=== PATIENT | male | born 1950 | race Caucasian/White ===

== ENCOUNTER 2024-07-06 06:12 | Outpatient (REF) | payer MEDICARE, BC, SELFPAY ==
--- OUTSIDE RECORDS SUMMARY | 2024-07-06 06:20 | XMS_ITS | Encounter Summary ---
Author Organization [facility] Address [address] [place] [address] Care Team Providers Care Aluminum Polisher Name Role Phone Herminia Velásquez MD Primary Care Provider [phone] Reason for Visit * Reason Onset Date Comments Med Refill 06/13/2024 Encounter Details Date Type Department Care Team (Late st Contact Info) Description 06/13/2024 Telephone [facility] [address] [place] [address] [place] [phone] Young Dash MD [address] [place] [address] [address] [place] [address] Med Refill Social History Tobacco Use Types Packs/Day Years Used Date Smoking Tobacco: Former Smokeless Tobacco: Former Alcohol Use Standard Drinks/Week Comments Yes 4 (1 standard drink = 0.6 oz pur e alcohol) Sex and Gender Information Value Date Recorded Sex Assigned at Not on file Legal Sex Male 11:57 AM EST Gender Identity Not on file Sexual Orientation Not on file documented as of this encounter Ordered Prescriptions Prescription Sig Dispense Quantity Refills Last Filled Start Date End Date Xarelto 20 mg tablet Take 1 tablet (20 mg total) by mouth 1 (one) time each day. 90 tablet 1 06/13/2024 documented in this encounter Progress Notes * Hyacinth Medina MA - 06/13/2024 10:40 AM EST Puneet 12/30/23--chem labs done 09/16/23--efaxeda refill for xarelto 20mg * Kassidy Mcgee 06/13/2024 10:34 AM EST The patient called requesting a refill for Xarelto 20 mg, 1 tablet daily, 90 day supply, pharmacy confirmed. documented in this encounter Plan of Treatment Upcoming Encounters Date Type Department Care Team (Late st Contact Info) Description 08/09/2024 7:30 AM EDT Appointment [facility] Endoscopy [address] [place] [phone] Julio Abdullahi MD [address] [address] documented as of this encounter Visit Diagnoses Not on filedocumented in this encounter Discontinued Medications Medication Sig Discontinue Reason Start Date End Da te Xarelto 20 mg tablet Take 1 tablet (20 mg total) by mouth 1 (one) time each day. Reorder 02/11/2024 06/13/2024 documented as of this encounter Care Teams Aluminum Polisher Relationship Specialty Start Date End Date Herminia Velásquez MD [address] [place] [id number] PCP - General Internal Medicine 06/13/24 documented as of this encounter
--- OUTSIDE RECORDS SUMMARY | 2024-07-06 06:20 | XMS_ITS ---
Author Organization [facility] Address [address] [place] [address] Care Team Providers Care Double Backer Name Role Phone TENZIN MEDINA Primary Care Provider REASON FOR REFERRAL Reason Colonoscopy screenin g with [facility] Diagnosis 1 Colon cancer screeni ng (Z12.11) Referral Organization [facility] Referring Provider First Name TENZIN Referring Provider Last Name ADAM Referring Provider Speciality Internal M edicine Referred Provider Specialty Gastroentero logy General Notes [facility], [address] [place] [id number], P [phone], F [phone] Clinical Notes Jojo Eric 2024 10:16:14 AM >Referral with note and labs sent to [facility]. Paper copy mailed to pt home for record. TYJeaneth Singer Kammy 06/14/2024 08:23:55 AM >Scheduled with Dr. Abdullahi 08/09/24 730AM. TY. Referral Priority Routine REASON FOR VISIT CCM - colo and dexa Encounters Encounter Location Date Provider Diagnosis [facility] [address] [place] [address] 06/07/2024 TENZIN MEDINA Screening for osteoporosis Z13.820 ASSESSMENTS Encounter Date Diagnosis Assessment Notes Treatment Notes Treatment Clinical Notes Section Notes 06/07/2024 Screening for osteoporosis (ICD-10 - Z13.820) PLAN OF TREATMENT Pending Test Test Name Order Date DEXA 06/07/2024 Referrals Referral Date Details Colonoscopy screenin g with [facility] Next Appt Details Provider Name:DWAYNE RUVALCABA, 01/03/2025 10:00:00 AM, [address] [place] [address], [phone], Progress Notes * Rubin VILLANUEVADOB:[birth year] (73 yo M)Acc No.[id number]:06/07/2024 Patient:??Rubin VILLANUEVA :1950?Age:73 Y?Sex:Neeru fuller Address:[address] [place] [address] [place] [address] Subjective: * Chief Complaints: * ?CCM - colo and dexa * Medical History:?? * Surgical History:?? * Hospitalization/Major Diagno stic Procedure:?? * Medications:?? Objective: Assessment: * Assessment: 1.??Screening for osteoporos is - Z13.820?? Plan: * Treatment: 2.??Others? Referral To:Gastroenterology ?Reason:Colonoscopy screening with [facility] * Procedure Codes:?? * true * Date:?? Consultation Request Notes Referral Date Referring Provider Referred Provider Not jamal 06/09/2024 TENZIN MEDINA , Colonoscopy scr eening with [facility]
--- OUTSIDE RECORDS SUMMARY | 2024-07-06 06:20 | XMS_ITS | Clinical Summary ---
Author Organization [facility] [address] [facility] Address [address] [place] [address] Phone Care Team Providers Care Litigation Coordinator Name Role Phone Herminia Velásquez MD Primary Care Provider [phone] Allergies No known active allergies Medications metoprolol succinate (TOPROL-XL) 50 mg 24 hr tablet TAKE 1 TABLET BY MOUTH EVERY DAY 90 tablet 2 4 Active calcium carbonate 1,500 mg (600 mg elemental calcium) tablet Take 1 tablet (1,500 mg total) by mouth 1 (one) time each day. Active Vitamin-B complex split tablet Take by mouth 1 (one) time each day. Active chlorthalidone (HYGROTON) 25 mg tablet Take 1 tablet (25 mg total) by mouth 1 (one) time each day. 4 Active amLODIPine-joy zepril (LOTREL) 10-40 mg per capsule Take 1 capsule by mouth 1 (one) time each day. Active cyanocobalamin (VITAMIN B-12) 1,000 mcg tablet Take 1 tablet (1,000 mcg total) by mouth. Active metoprolol succinate (TOPROL-XL) 50 mg 24 hr tablet Take 1 tablet (50 mg total) by mouth 1 (one) time each day. 4 Active Xarelto 20 mg tablet Take 1 tablet (20 mg total) by mouth 1 (one) time each day. 90 tablet 1 5 Active Xarelto 20 mg tablet Take 1 tablet (20 mg total) by mouth 1 (one) time each day. 4 06/13/19 25 Discontinue d(Reorder) polyethylene glycol (COLYTE) 240-22.72-6.72 -5.84 gram solutionIndicat ions:Personal history of other colon polyps Take 4,000 mL by mouth 1 (one) time for 1 dose. Drink 8 oz every 10-15 minutes until solution is gone 4000 mL 06/13/19 25 Encounters Date Type Department Care Team Description 06/13/2024 Telephone [facility] Cardiology [facility] [address] [place] [address] GeorgianaYoung Good MD Med Refill from Last 3 Months Social History Tobacco Use Types Packs/Day Years Used Date Smoking Tobacco: Former Smokeless Tobacco: Former Alcohol Use Standard Drinks/Week Comments Yes 4 (1 standard drink = 0.6 oz pur e alcohol) Sex and Gender Information Value Date Recorded Sex Assigned at Not on file Legal Sex Male 11:57 AM EST Gender Identity Not on file Sexual Orientation Not on file Obstetrics History Last Filed Vital Signs Vital Sign Reading Time Taken Comments Blood Pressure 120/64 12/30/2023 8:36 AM EDT Sit ting L Arm Pulse 57 12/30/2023 8:36 AM EDT Temperature - - Respiratory Rate - - Oxygen Saturation - - Inhaled Oxygen Concentration - - Weight 100 kg (221 lb) 12/30/2023 8:36 AM EDT Height 180.3 cm (5' 11 ) 12/30/2023 8:36 AM EDT Body Mass Index 30.82 12/30/2023 8:36 AM EDT Plan of Treatment Upcoming Encounters Date Type Department Care Team (Late st Contact Info) Description 08/09/2024 7:30 AM EDT Appointment [facility] Endoscopy [address] [place] [address] Julio Abdullahi MD [address] [address] Health Maintenance Due Date Last Done Comments DTaP,Tdap,and Td Vaccines (1 - Tdap) 09/09/1970 Pneumococcal Vaccine: 50+ Ye ars (1 of 1 - PCV) 09/09/2001 Zoster Vaccines (1 of 2) 09/09/2001 RSV Immunization Patients 60 + Years Old (1 - Risk 60-74 years 1-dose series) 2011 Abdominal Aortic Aneurysm (A AA) Screen 03/31/2022 Cholesterol Screening (Lipid Panel) 03/31/2022 Colorectal Cancer Screening: Colonoscopy 03/31/2022 Depression Screening 03/31/2022 Falls Risk Assessment 03/31/2022 Hepatitis C Screening 03/31/2022 Social Influencers of Health Screening 03/31/2022 Medicare Annual Wellness Visit 10/28/2022 10/28/2021 COVID-19 Vaccine (1 - 2023-2 5 season) 2024 Influenza Vaccine (#1) 2024 Hypertension/CHF/CAD Annual BMP Blood Test 09/15/2024 09/16/2023 HIB Vaccines Aged Out No longer eligi ble based on patient's age to complete this topic HPV Vaccines Aged Out No longer eligi ble based on patient's age to complete this topic Hepatitis A Vaccines Aged Out No long er eligible based on patient's age to complete this topic Hepatitis B Vaccines Aged Out No long er eligible based on patient's age to complete this topic IPV Vaccines Aged Out No longer eligi ble based on patient's age to complete this topic MMR Vaccines Aged Out No longer eligi ble based on patient's age to complete this topic Meningococcal ACWY Vaccine Aged Out N o longer eligible based on patient's age to complete this topic Meningococcal B Vacine Aged Out No lo nger eligible based on patient's age to complete this topic RSV Immunization Patients Un abe 20 months Aged Out No longer eligible b ased on patient's age to complete this topic Varicella Vaccines Aged Out No longer eligible based on patient's age to complete this topic Insurance MEDICARE [facility] Care Teams Litigation Coordinator Relationship Specialty Start Date End Date Herminia Velásquez MD [address] [place] [id number] PCP - General Internal Medicine 06/13/24
--- OUTSIDE RECORDS SUMMARY | 2024-07-06 06:21 | XMS_ITS ---
Author Organization [facility] Address [address] [place] [address] Care Team Providers Care Career Development Specialist Name Role Phone TENZIN MEDINA Primary Care Provider DWAYNE RUVALCABA Unavailable [phone] ALLERGIES No Known Allergies REASON FOR VISIT Pt here for MWV, pt has no concerns. MEDICATIONS Medication SIG (Take, Route, Frequency, Duration) Notes Start Date End Date Status Chlorthalidone 25 MG 1 tablet in the mor kati with food Orally Once a day for 30 day(s) 03/13/2020 Active Viagra 100 MG 1 tablet as needed Orally Once a day for 30 day(s) 12/20/2018 Active Toprol XL 50 MG 1 tablet Orally Once a day for 90 days Active amLODIPine Besy-Benazepril HCl 10-40 MG TAKE 1 CAPSULE BY MOUTH EVERY DAY for 90 Active Xarelto Active Vitamin B12 100 MCG as directed Orally Active Calcium 500 MG 1 tablet with meals Orally Twice a day for 30 day(s) Active Complex B-100 - as directed Orally Active SOCIAL HISTORY Tobacco Use: Social History Observation Description Date Details (start date - stop date) Former Smoker NA - NA Sex Assigned At : Social History Observation Description Sex Assigned At Unknown Tobacco Use/Smoking Question Answer Notes Are you a former smoker VITAL SIGNS Blood pressure systolic 142 mm Hg 07/04/19 25 Blood pressure diastolic 68 mm Hg 025 Heart Rate 82 /min 07/03/2024 Height 70 in 07/03/2024 Weight 228 lbs 07/03/2024 BMI 32.71 kg/m2 07/03/2024 Oximetry 99 % 07/03/2024 Encounters Encounter Location Date Provider Diagnosis [facility] [address] [facility] [address] [place] [address] 07/03/2024 DWAYNE RUVALCABA Annual physical exam Z00.00 ; Encounter for screening for depression Z13.31 ; Encounter for screening for other disorder Z13.89 ; Advanced directives, counseling/discussion Z71.89 ; Essential (primary) hypertension I10 ; Other obesity due to excess calories E66.09 ; PAF (paroxysmal atrial fibrillation) I48.0 ; Body mass index [BMI] 32.0-32.9, adult Z68.32 ; Hyperlipidemia, unspecified E78.5 and Chronic anticoagulation Z79.01 ASSESSMENTS Encounter Date Diagnosis Assessment Notes Treatment Notes Treatment Clinical Notes Section Notes 07/03/2024 Annual physical exam (ICD-10 - Z00.00) Patient is here today for MAWV Acute Concerns/Problem List: 07/03/2024 _update labs please Rate controlled, no A. Fib today, , On chronic anticoagulation BP is stable, other chronic conditions stable. HCP and MOLST on file. Of note, some information is being carried forward from prior records for informational purposes only and is being cited so that efficiency, safety and quality of the patient's care is not compromised This note was prepared using voice recognition software and direct typing Please excuse inadvertent swatch paster or typing errors, or uncorrected word substitutions Although every attempt has been made by the provider to proofread this document, occasional misspellings and typographical errors may still be present Due to the previous pandemic, and the use of personal protective equipment (PPE) This may decrease voice recognition accuracy Inadvertent swatch paster errors may occur 07/03/2024 Encounter for screening for depression (ICD-10 - Z13.31) Patient is here today for MAWV Acute Concerns/Problem List: 07/03/2024 _update labs please Rate controlled, no A. Fib today, , On chronic anticoagulation BP is stable, other chronic conditions stable. HCP and MOLST on file. Of note, some information is being carried forward from prior records for informational purposes only and is being cited so that efficiency, safety and quality of the patient's care is not compromised This note was prepared using voice recognition software and direct typing Please excuse inadvertent swatch paster or typing errors, or uncorrected word substitutions Although every attempt has been made by the provider to proofread this document, occasional misspellings and typographical errors may still be present Due to the previous pandemic, and the use of personal protective equipment (PPE) This may decrease voice recognition accuracy Inadvertent swatch paster errors may occur 07/03/2024 Encounter for screening for other disorder (ICD-10 - Z13.89) Patient is here today for MAWV Acute Concerns/Problem List: 07/03/2024 _update labs please Rate controlled, no A. Fib today, , On chronic anticoagulation BP is stable, other chronic conditions stable. HCP and MOLST on file. Of note, some information is being carried forward from prior records for informational purposes only and is being cited so that efficiency, safety and quality of the patient's care is not compromised This note was prepared using voice recognition software and direct typing Please excuse inadvertent swatch paster or typing errors, or uncorrected word substitutions Although every attempt has been made by the provider to proofread this document, occasional misspellings and typographical errors may still be present Due to the previous pandemic, and the use of personal protective equipment (PPE) This may decrease voice recognition accuracy Inadvertent swatch paster errors may occur 07/03/2024 Advanced directives, counseling/discussi on (ICD-10 - Z71.89) Patient is here today for MAWV Acute Concerns/Problem List: 07/03/2024 _update labs please Rate controlled, no A. Fib today, , On chronic anticoagulation BP is stable, other chronic conditions stable. HCP and MOLST on file. Of note, some information is being carried forward from prior records for informational purposes only and is being cited so that efficiency, safety and quality of the patient's care is not compromised This note was prepared using voice recognition software and direct typing Please excuse inadvertent swatch paster or typing errors, or uncorrected word substitutions Although every attempt has been made by the provider to proofread this document, occasional misspellings and typographical errors may still be present Due to the previous pandemic, and the use of personal protective equipment (PPE) This may decrease voice recognition accuracy Inadvertent swatch paster errors may occur 07/03/2024 Essential (primary) hypertension (ICD-10 - I10) Patient is here today for MAWV Acute Concerns/Problem List: 07/03/2024 _update labs please Rate controlled, no A. Fib today, , On chronic anticoagulation BP is stable, other chronic conditions stable. HCP and MOLST on file. Of note, some information is being carried forward from prior records for informational purposes only and is being cited so that efficiency, safety and quality of the patient's care is not compromised This note was prepared using voice recognition software and direct typing Please excuse inadvertent swatch paster or typing errors, or uncorrected word substitutions Although every attempt has been made by the provider to proofread this document, occasional misspellings and typographical errors may still be present Due to the previous pandemic, and the use of personal protective equipment (PPE) This may decrease voice recognition accuracy Inadvertent swatch paster errors may occur 07/03/2024 Other obesity due to excess calories (ICD-10 - E66.09) Patient is here today for MAWV Acute Concerns/Problem List: 07/03/2024 _update labs please Rate controlled, no A. Fib today, , On chronic anticoagulation BP is stable, other chronic conditions stable. HCP and MOLST on file. Of note, some information is being carried forward from prior records for informational purposes only and is being cited so that efficiency, safety and quality of the patient's care is not compromised This note was prepared using voice recognition software and direct typing Please excuse inadvertent swatch paster or typing errors, or uncorrected word substitutions Although every attempt has been made by the provider to proofread this document, occasional misspellings and typographical errors may still be present Due to the previous pandemic, and the use of personal protective equipment (PPE) This may decrease voice recognition accuracy Inadvertent swatch paster errors may occur 07/03/2024 PAF (paroxysmal atrial fibrillation) (ICD-10 - I48.0) Patient is here today for MAWV Acute Concerns/Problem List: 07/03/2024 _update labs please Rate controlled, no A. Fib today, , On chronic anticoagulation BP is stable, other chronic conditions stable. HCP and MOLST on file. Of note, some information is being carried forward from prior records for informational purposes only and is being cited so that efficiency, safety and quality of the patient's care is not compromised This note was prepared using voice recognition software and direct typing Please excuse inadvertent swatch paster or typing errors, or uncorrected word substitutions Although every attempt has been made by the provider to proofread this document, occasional misspellings and typographical errors may still be present Due to the previous pandemic, and the use of personal protective equipment (PPE) This may decrease voice recognition accuracy Inadvertent swatch paster errors may occur 07/03/2024 Body mass index [BMI] 32.0-32.9, adult (ICD-10 - Z68.32) Patient is here today for MAWV Acute Concerns/Problem List: 07/03/2024 _update labs please Rate controlled, no A. Fib today, , On chronic anticoagulation BP is stable, other chronic conditions stable. HCP and MOLST on file. Of note, some information is being carried forward from prior records for informational purposes only and is being cited so that efficiency, safety and quality of the patient's care is not compromised This note was prepared using voice recognition software and direct typing Please excuse inadvertent swatch paster or typing errors, or uncorrected word substitutions Although every attempt has been made by the provider to proofread this document, occasional misspellings and typographical errors may still be present Due to the previous pandemic, and the use of personal protective equipment (PPE) This may decrease voice recognition accuracy Inadvertent swatch paster errors may occur 07/03/2024 Hyperlipidemia, unspecified (ICD-10 - E78.5) Patient is here today for MAWV Acute Concerns/Problem List: 07/03/2024 _update labs please Rate controlled, no A. Fib today, , On chronic anticoagulation BP is stable, other chronic conditions stable. HCP and MOLST on file. Of note, some information is being carried forward from prior records for informational purposes only and is being cited so that efficiency, safety and quality of the patient's care is not compromised This note was prepared using voice recognition software and direct typing Please excuse inadvertent swatch paster or typing errors, or uncorrected word substitutions Although every attempt has been made by the provider to proofread this document, occasional misspellings and typographical errors may still be present Due to the previous pandemic, and the use of personal protective equipment (PPE) This may decrease voice recognition accuracy Inadvertent swatch paster errors may occur 07/03/2024 Chronic anticoagulation (ICD-10 - Z79.01) Patient is here today for MAWV Acute Concerns/Problem List: 07/03/2024 _update labs please Rate controlled, no A. Fib today, , On chronic anticoagulation BP is stable, other chronic conditions stable. HCP and MOLST on file. Of note, some information is being carried forward from prior records for informational purposes only and is being cited so that efficiency, safety and quality of the patient's care is not compromised This note was prepared using voice recognition software and direct typing Please excuse inadvertent swatch paster or typing errors, or uncorrected word substitutions Although every attempt has been made by the provider to proofread this document, occasional misspellings and typographical errors may still be present Due to the previous pandemic, and the use of personal protective equipment (PPE) This may decrease voice recognition accuracy Inadvertent swatch paster errors may occur PLAN OF TREATMENT Next Appt Details Provider Name:DWAYNE RUVALCABA, 01/03/2025 10:00:00 AM, [address], [address], [place], [address], Progress Notes * Rubin VILLANUEVADOB:[birth year] (73 yo M)Acc No.[id number]:07/03/2024 Progress Note Patient:??Rubin VILLANUEVA Provider:??DWAYNE RUVALCABA NP :1950?Age:73 Y?Sex:Ma le Date:07/03/2024 Address:[address] [place] [address] [facility] Pcp:TENZIN MEDINA Subjective: * Chief Complaints: * ?1. Pt here for MWV, pt has no concerns.. * HPI: ?Constitutional:? Patient is here for a Medicare Wellness Visit ([facility]) ?Complete paperwork was reviewed and updated and has been filed and scan. ?Age appropriate screening measures reviewed ?Depression screen completed. PHQ-9: 0 ?Alcohol audit screening completed. AUDIT: 4 ?Cognition assessed MMSE/MOCA: 28 ?Fall risk assessed ?Obesity screen completed. ? Cardiovascular risk stratification screen completed. ?Discussed healthcare proxy. ?Discussed [place] order for life sustaining treatment, ?Comprehensive fasting labs reviewed ?Patient seen and examined. ? Full past medical history, social history, family history, ?allergies and current medications were reviewed and updated. ?Acute Concerns/Problem List: ?07/03/2024 ?Due for updated labs ? No acute concerns for todays visit. ?Being managed by cardiology Dr. Stoner, history of paroxysmal atrial fibrillation, ?LAst seen 1 year ago, scheduled for appointment in August or October ?Still having chronic Carpal tunnel symptoms, wears gloves occasionally. ?Colonoscopy scheduled in August ?History hypertension, former smoker ?Reports drinking 3-4 beers per night. ?Exercise stress test in May 2022 showed normal exercise stress test ?No ischemic ST changes ?Echocardiogram also showing left ventricular systolic function normal, ?EF of 60-65%, no significant valvular disease ?Chronically anti-coagulated with Xarelto, rate controlled with beta- joe ?States that he goes to the gym 5 days a week and does cardio and resistance training. ?Comprehensive labs 06/2023 ?Hemoglobin A1c of 5.5 ?Electrolytes renal function LFTs are stable ?CBC is stable ?Total cholesterol 165, LDL 105, HDL 44, triglycerides 84 ?Vitamin D 38 ?TSH 2.5 ?Urinalysis unremarkable ?Health maintenance ?Colonoscopy Dr. Abdullahi, 2021, Scheduled for August 2024 ?patient reports every 5 years surveilance given polyps ?Flu vaccinated 2022, none this year ?RSV 03/2023 ?Shingles vaccinated ?COVID x 4 boostedx2 MRNA ?Pneumonia: States that he recieved it within the last couple years. * ROS:?All Other Systems:?Review of Systems (ROS)??All others negative except those mentioned in HPI.? * Medical History:??Hypertensi on, Hyperlipidemia. * Surgical History:??colonosco py 2016 , ankle surgery . * Family History:??Father: dec eased, diagnosed with Other malignant neoplasm of unspecified site.??Mother: alive.??2 brother(s) , 1 sister(s) . 1 daughter(s) . .?? * Social History:?Tobacco Use:??Tobacco Use/Smoking??Are you a??former smoker.?? * Medications:??Taking Xarelto , Taking Calcium 500 MG Tablet 1 tablet with meals Orally Twice a day , Taking Vitamin B12 100 MCG Tablet as directed Orally , Taking Complex B-100 - Tablet Extended Release as directed Orally , Taking Chlorthalidone 25 MG Tablet 1 tablet in the morning with food Orally Once a day , Taking Toprol XL 50 MG Tablet Extended Release 24 Hour 1 tablet Orally Once a day , Taking Viagra 100 MG Tablet 1 tablet as needed Orally Once a day , Taking amLODIPine Besy-Benazepril HCl 10-40 MG Capsule TAKE 1 CAPSULE BY MOUTH EVERY DAY , Medication List reviewed and reconciled with the patient * Allergies:??N.K.D.A. Objective: * Vitals:??HR:82/min, BP:142/6 8mm Hg, Wt:228lbs, BMI:32.71Index, Ht: 70 in, Oxygen sat %:99%. * Examination: ?General Examination: ?GENERAL APPEARANCE:??in no acute distress, well developed, well nourished.??HEAD:??normocephalic, atraumatic.??EYES:??pupils equal, round, reactive to light and accommodation.??EARS:??normal.??ORAL CAVITY:??mucosa moist.??THROAT:??clear.??NECK/THYROID:??neck supple, full range of motion, no cervical lymphadenopathy.??SKIN:??no suspicious lesions, warm and dry.??HEART:??no murmurs, regular rate and rhythm, S1, S2 normal.??LUNGS:??clear to auscultation bilaterally.??ABDOMEN:??normal, bowel sounds present, soft, nontender, nondistended.??EXTREMITIES:??no clubbing, cyanosis, or edema.??NEUROLOGIC:??nonfocal, motor strength normal upper and lower extremities, sensory exam intact.? Assessment: * Assessment: 1.??Annual physical exam - Z 00.00 (Primary)??2.??Encounter for screening for depression - Z13.31??3.??Encounter for screening for other disorder - Z13.89??4.??Advanced directives, counseling/discussion - Z71.89??5.??Essential (primary) hypertension - I10??6.??Other obesity due to excess calories - E66.09??7.??PAF (paroxysmal atrial fibrillation) - I48.0??8.??Body mass index [BMI] 32.0-32.9, adult - Z68.32??9.??Hyperlipidemia, unspecified - E78.5??10.??Chronic anticoagulation - Z79.01?? Patient is here today for ROSELYN TERAN Acute Concerns/Problem List: 07/03/2024 _update labs please Rate controlled, no A. Fib today, , On chronic anticoagulation BP is stable, other chronic conditions stable. HCP and MOLST on file. Of note, some information is being carried forward from prior records for informational purposes only and is being cited so that efficiency, safety and quality of the patient's care is not compromised This note was prepared using voice recognition software and direct typing Please excuse inadvertent swatch paster or typing errors, or uncorrected word substitutions Although every attempt has been made by the provider to proofread this document, occasional misspellings and typographical errors may still be present Due to the previous pandemic, and the use of personal protective equipment (PPE) This may decrease voice recognition accuracy Inadvertent swatch paster errors may occur. Plan: * Treatment: * Procedure Codes:??G0439 YESSY AL WELLNESS VST; PPS SUBSQT VST, G0444 ANNUAL DEPRESSION SCREENING 15 MIN, Modifiers: 59 , G0442 ANNUAL ALCOHOL MISUSE SCREEN 15 MIN, Modifiers: 59 , 25765 ADVNCD CARE PLAN 30 MIN, Modifiers: 33 * Images: Billing Information: * Visit Code:?? * Procedure Codes:?? G0439 ANNUAL WELLNESS VST; PPS SUBSQT VST. G0444 ANNUAL DEPRESSION SCREENING 15 MIN. Modifiers: 59 G0442 ANNUAL ALCOHOL MISUSE SCREEN 15 MIN. Modifiers: 59 [id number] ADVNCD CARE PLAN 30 MIN. Modifiers: 33 Care Plan Details* * Sign off status: Completed true * Provider:??DWAYNE RUVALCABA NP Date:??07/2024 History and Physical Notes * HPI (History of Present Illness) Category Sub-Category Detail Notes Category Not es Constitutional Patient is here for a Medicare Wellness Visit (MAWV) Complete paperwork was reviewed and updated and has been filed and scan. Age appropriate screening measures reviewed Depression screen completed. PHQ-9: 0 Alcohol audit screening completed. AUDIT: 4 Cognition assessed MMSE/MOCA: 28 Fall risk assessed Obesity screen completed. Cardiovascular risk stratification screen completed. Discussed healthcare proxy. Discussed [place] order for life sustaining treatment, Comprehensive fasting labs reviewed Patient seen and examined. Full past medical history, social history, family history, allergies and current medications were reviewed and updated. Acute Concerns/Problem List: 07/03/2024 Due for updated labs No acute concerns for todays visit. Being managed by cardiology Dr. Stoner, history of paroxysmal atrial fibrillation, LAst seen 1 year ago, scheduled for appointment in August or October Still having chronic Carpal tunnel symptoms, wears gloves occasionally. Colonoscopy scheduled in August History hypertension, former smoker Reports drinking 3-4 beers per night. Exercise stress test in May 2022 showed normal exercise stress test No ischemic ST changes Echocardiogram also showing left ventricular systolic function normal, EF of 60-65%, no significant valvular disease Chronically anti-coagulated with Xarelto, rate controlled with beta-joe States that he goes to the gym 5 days a week and does cardio and resistance training. Comprehensive labs 06/2023 Hemoglobin A1c of 5.5 Electrolytes renal function LFTs are stable CBC is stable Total cholesterol 165, LDL 105, HDL 44, triglycerides 84 Vitamin D 38 TSH 2.5 Urinalysis unremarkable Health maintenance Colonoscopy Dr. Abdullahi, 2022, Scheduled for August 2024 patient reports every 5 years surveilance given polyps Flu vaccinated 2022, none this year RSV 03/2023 Shingles vaccinated COVID x 4 boostedx2 MRNA Pneumonia: States that he recieved it within the last couple years Examination Category Sub-Category Detail Notes Category Not es General Examination GENERAL APPEARANCE: in no ac mechoopda distress, well developed, well nourished HEAD: normocephalic, atrau matic EYES: pupils equal, round, reactive to light and accommodation EARS: normal THROAT: clear NECK/THYROID: neck supple, full ra nge of motion, no cervical lymphadenopathy HEART: no murmurs, regular rate and rhythm, S1, S2 normal LUNGS: clear to auscultatio n bilaterally ABDOMEN: normal, bowel sounds present, soft, nontender, nondistended NEUROLOGIC: nonfocal, motor stre ngth normal upper and lower extremities, sensory exam intact SKIN: no suspicious lesion s, warm and dry EXTREMITIES: no clubbing, cyanosi s, or edema ORAL CAVITY: mucosa moist
--- OUTSIDE RECORDS SUMMARY | 2024-07-06 06:21 | XMS_ITS ---
Author Organization [facility] Address [address] [place] [address] Care Team Providers Care Real Estate Sales Agent Name Role Phone TENZIN MEDINA Primary Care Provider [phone] REASON FOR VISIT CCM Encounters Encounter Location Date Provider Diagnosis [address] [place] [address] 03/24/2024 TENZIN MEDINA PLAN OF TREATMENT Next Appt Details Provider Name:DWAYNE RUVALCABA, 01/03/2025 10:00:00 AM, [address], [address], [place], [address], Progress Notes * Rubin VILLANUEVADOB:[birth year] (73 yo M)Acc No.[id number]:03/24/2024 Patient:??Rubin VILLANUEVA :1950?Age:73 Y?Sex:Neeru fuller Address: [place] [address] * true * Date:??
[2024-07-06 10:41] LABS: MANUAL DIFF FLAG NO
[2024-07-06 10:50] LABS: Basophils Absolute Auto 0.1 X10*3/uL (0.0-0.2); Basophils Percent Auto 1.1 % (0-2); Eosinophils Absolute Auto 0.2 X10*3/uL (0.0-0.4); Eosinophils Percent Auto 3.4 % (0-4); Hematocrit 40.4 % (42.0-52.0); Hemoglobin 13.9 g/dl (14.0-18.0); Imm Gran Abs Auto 0.02 X10*3/uL (0.00-0.03); Imm Gran Pct Auto 0.4 % (0.0-0.4); Lymphocytes Absolute Auto 1.8 X10*3/uL (1.2-4.9); Lymphocytes Percent Auto 32.3 % (20-40); Mean Corpuscular HGB Conc 34.4 g/dl (31.0-36.0); Mean Corpuscular Hemoglobin 33.7 pg (27.0-33.0); Mean Corpuscular Volume 97.8 fL (80.0-98.0); Mean Platelet Volume 10.7 fL (9.4-12.4); Monocytes Absolute Auto 0.7 X10*3/uL (0.1-1.2); Monocytes Percent Auto 11.9 % (2-11); Neutrophils Absolute Auto 2.9 x10*3/uL (2.0-8.3); Neutrophils Percent Auto 50.9 % (45-73); Platelet Count 238 X10*3/uL (160-400); Red Blood Count 4.13 X10*6/uL (4.60-5.80); Red Cell Distribution Width 12.8 % (11.0-16.0); White Blood Count 5.6 X10*3/uL (4.8-10.8)
[2024-07-06 11:18] LABS: Estimated Average Glucose 108 mg/dL; Hemoglobin A1c % 5.4 % (<6.0)
[2024-07-06 11:20] LABS: Alanine Aminotransferase 19 U/L (0-40); Albumin Level 3.9 g/dL (3.5-5.0); Alkaline Phosphatase 47 U/L (39-117); Anion Gap 13 (12-20); Aspartate Amino Transferase 22 U/L (5-37); Bilirubin Total 0.7 mg/dL (0.0-1.0); Blood Urea Nitrogen 17 mg/dL (9-16); Calcium 9.2 mg/dL (8.4-10.2); Carbon Dioxide 25 mmol/L (22-29); Chloride 106 mmol/L (96-108); Cholesterol 144 mg/dL (<200); Estimated Glomerular Filt Rate > 60; Glucose Random 115 mg/dL (60-115); HDL Cholesterol 43 mg/dL (>40); LDL Cholesterol Calculated 88 mg/dL (<100); Sodium 140 mmol/L (135-145); Triglycerides 69 mg/dL (<150)
[2024-07-06 11:43] LABS: Appearance Urine Clear; Color Urine Dark Yellow; Glucose Urine UA Negative (Negative); Leukocyte Esterase Urine Negative (Negative); Nitrite Urine Negative (Negative); PH 7.5 (5.0-9.0); Specific Gravity - Urine 1.015 (1.005-1.025); Urine Blood Negative (Negative); Urine Ketones Negative (Negative); Urine Protein Negative (Neg-Trace)
== END 2024-07-06 06:13 | disposition home or self-care (01) ==
LOC: HO.HMGCLDS 06:12
PROVIDERS: PCP Nurse Practitioner Acute Care; Visit Provider Nurse Practitioner Acute Care
DX: Z00.00 Encounter for general adult medical examination without abnormal findings (principal); Z13.1 Encounter for screening for diabetes mellitus; Z13.220 Encounter for screening for lipoid disorders; E55.9 Vitamin D deficiency, unspecified; Z13.29 Encounter for screening for other suspected endocrine disorder; Z13.6 Encounter for screening for cardiovascular disorders
CPT/HCPCS: 36415; 80053; 80061; 81003; 82306; 83036; 84443; 85025

== ENCOUNTER 2025-01-18 06:08 | Outpatient (REF) | payer MEDICARE, BC, SELFPAY ==
--- OUTSIDE RECORDS SUMMARY | 2025-01-18 06:11 | XMS_ITS | Patient Health Record ---
Author Organization [facility] Address [address] [place] [address] Care Team Providers Care Supervisor Drapery Hanging Name Role Phone MEDINA, TENZIN Primary Care Provider [phone] RONENRamonDWAYNE Unavailable [phone] Allergies No Known Allergies Results Component Value Reference Range Notes TISSUE EXAM Reviewed date:08/16/2024 10:10:10 AM Interpretation: Performing Lab: Notes/Report: Final Diagnosis Large Intestine, Cecum, polyp x1: -BENIGN COLONIC MUCOSA WITH NO SPECIFIC PATHOLOGIC CHANGE Gross Description A. Large Intestine, Cecum, polyp x1: Labeled colon cecum polyp x 1 . Received in formalin is a 0.5 cm irregular hendrickson mucosal tissue fragments which is wrapped in paper and submitted in toto in one cassette, one piece, multiple levels. ISAMAR Disclaimer Unless otherwise specified, all tissue is 10% NB formalin fixed and paraffin embedded. Reason For Referral Reason Colonoscopy screenin g with [facility] Diagnosis 1 Colon cancer screeni ng (Z12.11) Referral Organization [facility] Referring Provider First Name TENZIN Referring Provider Last Name ADAM Referring Provider Speciality Internal M edicine Referred Provider Specialty Gastroentero logy General Notes [facility], [address] [place] [id number], P [phone], F [phone] Clinical Notes Jojo Eric 2024 10:16:14 AM >Referral with note and labs sent to [facility]. Paper copy mailed to pt home for record. TY.Jeaneth Kammy 06/14/2024 08:23:55 AM >Scheduled with Dr. Abdullahi 08/09/24 730AM. TY. Referral Priority Routine Medications Medication SIG (Take, Route, Frequency, Duration) Notes Start Date End Date Status Xarelto Active Complex B-100 - as directed Orally Active Vitamin B12 100 MCG as directed Orally Active Calcium 500 MG 1 tablet with meals Orally Twice a day; Duration: 30 day(s) Active amLODIPine Besy-Benazepril HCl 10-40 MG TAKE 1 CAPSULE BY MOUTH EVERY DAY; Duration: 90 Active Viagra 100 MG 1 tablet as needed Orally Once a day; Duration: 30 day(s) 12/20/2018 Active Toprol XL 50 MG 1 tablet Orally Once a day; Duration: 90 days Active Chlorthalidone 25 MG 1 tablet in the mor kati with food Orally Once a day; Duration: 30 day(s) 03/13/2020 Active Immunizations Vaccine Route Administration Date Status Comme nts influenza IM Intramuscular 04/13/2018 Administered Influenza, high dose seasonal IM Intramuscular 01/23/2019 Administered Pfizer Covid-19 Vaccine IM Intramuscular 07/05/2020 Admini stered Pfizer Covid-19 Vaccine IM Intramuscular 07/26/2020 Admini stered Pneumococcal conjugate PCV 7 IM Intramuscular 02/02/2018 Administered Pneumococcal polysaccharide PPV23 IM Intramuscular 07/12/2017 Administered Tdap IM Intramuscular 07/12/2017 Administered Social History Tobacco Use: Social History Observation Description Date Details (start date - stop date) Former Smoker NA - NA Tobacco Use/Smoking Question Answer Notes Are you a former smoker Problems Problem Type SNOMED Code ICD Code Onset Dates Problem Status W/U Status Risk Notes Problem Vitamin D deficiency (97778244) Vitamin D deficiency, unspecified (E55.9) Active confirmed Problem Obesity due to excess calories (396278840) Other obesity due to excess calories (E66.09) Active confirmed Problem Hyperlipidemia (07331843) Hyperlipidemia, unspecified (E78.5) Active confirmed Problem Essential hypertension (73199701) Essential (primary) hypertension (I10) Active confirmed Problem Adult health examination (827567529) Encounter for general adult medical examination without abnormal findings (Z00.00) Active confirmed Problem Diabetes mellitus screening (048611863) Encounter for screening for diabetes mellitus (Z13.1) Active confirmed Problem Lipid screening (001735661) Encounter for screening for lipoid disorders (Z13.220) Active confirmed Problem Endocrine/metaboli c screening (395972109) Encounter for screening for other suspected endocrine disorder (Z13.29) Active confirmed Problem Carpal tunnel syndrome of right wrist (475892364487253) Carpal tunnel syndrome of right wrist (G56.01) Active confirmed Problem Screening colonoscopy (760351026) Encounter for screening colonoscopy (Z12.11) Active confirmed Problem Anemia (681664154) Anemia due to other cause, not classified (D64.89) Active confirmed Problem Hypothyroidism (96793141) Hypothyroidism, unspecified type (E03.9) Active confirmed Problem Vitamin D deficiency (43492707) Vitamin D deficiency (E55.9) Active confirmed Problem Use of anticoagulation (073417492) Chronic anticoagulation (Z79.01) Active confirmed Problem Body mass index 30.00 to 34.99 (433543524004900) Body mass index [BMI] 32.0-32.9, adult (Z68.32) Active confirmed Problem Atrial fibrillation (69293955) PAF (paroxysmal atrial fibrillation) (I48.0) Active confirmed Vital Signs Heart Rate 93 /min 01/03/2025 Oximetry 99 % 01/03/2025 Blood pressure diastolic 60 mm Hg 01/03/2025 Height 70 in 01/03/2025 Blood pressure systolic 110 mm Hg 01/03/2025 Weight 221 lbs 01/03/2025 BMI 31.71 kg/m2 01/03/2025 Encounters Encounter Location Date Provider Diagnosis [facility] [address] [address] 07/03/2024 DWAYNE RUVALCABA Annual physical exam Z00.00 ; Encounter for screening for depression Z13.31 ; Encounter for screening for other disorder Z13.89 ; Advanced directives, counseling/discussion Z71.89 ; Essential (primary) hypertension I10 ; Other obesity due to excess calories E66.09 ; PAF (paroxysmal atrial fibrillation) I48.0 ; Body mass index [BMI] 32.0-32.9, adult Z68.32 ; Hyperlipidemia, unspecified E78.5 and Chronic anticoagulation Z79.01 [facility] [address] [address] 01/03/2025 DWAYNE RUVALCABA Essential (primary) hypertension I10 ; Other obesity due to excess calories E66.09 ; PAF (paroxysmal atrial fibrillation) I48.0 ; Body mass index [BMI] 32.0-32.9, adult Z68.32 ; Hyperlipidemia, unspecified E78.5 and Chronic anticoagulation Z79.01 [facility] [address] [facility] [address] [place] [address] 02/07/2024 TENZIN MEDINA [facility] [address] [facility] [address] [place] [address] 03/24/[address] [facility] [address] [place] [address] 06/07/2024 TENZIN MEDINA Screening for osteoporosis Z13.820 Assessments Encounter Date Diagnosis (ICD Code) Assessment Notes Treatment Notes Treatment Clinical Notes Section Notes 01/03/2025 Essential (primary) hypertension (ICD-10 - I10) Acute Concerns/Problem List: 01/04/2025 Lets update some comprehensive labs Will continue to see him biannually Chronic conditions are stable Rate controlled, no A. Fib today, , [...] software and direct typing Please excuse inadvertent stacker and sorter operator or typing errors, or uncorrected word substitutions Although every attempt has been made by the provider to proofread this document, occasional misspellings and typographical errors may still be present Due to the previous pandemic, and the use of personal protective equipment (PPE) This may decrease voice recognition accuracy Inadvertent stacker and sorter operator errors may occur 06/07/2024 Screening for osteoporosis (ICD-10 - Z13.820) 07/03/2024 Encounter for screening for depression (ICD-10 [...] software and direct typing Please excuse inadvertent stacker and sorter operator or typing errors, or uncorrected word substitutions Although every attempt has been made by the provider to proofread this document, occasional misspellings and typographical errors may still be present Due to the previous pandemic, and the use of personal protective equipment (PPE) This may decrease voice recognition accuracy Inadvertent stacker and sorter operator errors may occur 07/03/2024 Annual physical exam (ICD-10 - Z00.00) [...] software and direct typing Please excuse inadvertent stacker and sorter operator or typing errors, or uncorrected word substitutions Although every attempt has been made by the provider to proofread this document, occasional misspellings and typographical errors may still be present Due to the previous pandemic, and the use of personal protective equipment (PPE) This may decrease voice recognition accuracy Inadvertent stacker and sorter operator errors may occur 07/03/2024 Encounter for screening [...] software and direct typing Please excuse inadvertent stacker and sorter operator or typing errors, or uncorrected word substitutions Although every attempt has been made by the provider to proofread this document, occasional misspellings and typographical errors may still be present Due to the previous pandemic, and the use of personal protective equipment (PPE) This may decrease voice recognition accuracy Inadvertent stacker and sorter operator errors may occur 01/03/2025 Other obesity due to excess calories (ICD-10 - E66.09) Acute Concerns/Problem List: 01/04/2025 Lets update some comprehensive labs Will continue to see him biannually Chronic conditions are stable Rate controlled, no A. Fib today, , [...] software and direct typing Please excuse inadvertent stacker and sorter operator or typing errors, or uncorrected word substitutions Although every attempt has been made by the provider to proofread this document, occasional misspellings and typographical errors may still be present Due to the previous pandemic, and the use of personal protective equipment (PPE) This may decrease voice recognition accuracy Inadvertent stacker and sorter operator errors may occur 01/03/2025 PAF (paroxysmal atrial fibrillation) (ICD-10 - I48.0) Acute Concerns/Problem List: 01/04/2025 Lets update some comprehensive labs Will continue to see him biannually Chronic conditions are stable Rate controlled, no A. Fib today, , [...] software and direct typing Please excuse inadvertent stacker and sorter operator or typing errors, or uncorrected word substitutions Although every attempt has been made by the provider to proofread this document, occasional misspellings and typographical errors may still be present Due to the previous pandemic, and the use of personal protective equipment (PPE) This may decrease voice recognition accuracy Inadvertent stacker and sorter operator errors may occur 07/03/2024 Advanced directives, counseling/discussi [...] software and direct typing Please excuse inadvertent stacker and sorter operator or typing errors, or uncorrected word substitutions Although every attempt has been made by the provider to proofread this document, occasional misspellings and typographical errors may still be present Due to the previous pandemic, and the use of personal protective equipment (PPE) This may decrease voice recognition accuracy Inadvertent stacker and sorter operator errors may occur 07/03/2024 Essential (primary) hypertension [...] software and direct typing Please excuse inadvertent stacker and sorter operator or typing errors, or uncorrected word substitutions Although every attempt has been made by the provider to proofread this document, occasional misspellings and typographical errors may still be present Due to the previous pandemic, and the use of personal protective equipment (PPE) This may decrease voice recognition accuracy Inadvertent stacker and sorter operator errors may occur 01/03/2025 Body mass index [BMI] 32.0-32.9, adult (ICD-10 - Z68.32) Acute Concerns/Problem List: 01/04/2025 Lets update some comprehensive labs Will continue to see him biannually Chronic conditions are stable Rate controlled, no A. Fib today, , [...] software and direct typing Please excuse inadvertent stacker and sorter operator or typing errors, or uncorrected word substitutions Although every attempt has been made by the provider to proofread this document, occasional misspellings and typographical errors may still be present Due to the previous pandemic, and the use of personal protective equipment (PPE) This may decrease voice recognition accuracy Inadvertent stacker and sorter operator errors may occur 01/03/2025 Hyperlipidemia, unspecified (ICD-10 - E78.5) Acute Concerns/Problem List: 01/04/2025 Lets update some comprehensive labs Will continue to see him biannually Chronic conditions are stable Rate controlled, no A. Fib today, , [...] software and direct typing Please excuse inadvertent stacker and sorter operator or typing errors, or uncorrected word substitutions Although every attempt has been made by the provider to proofread this document, occasional misspellings and typographical errors may still be present Due to the previous pandemic, and the use of personal protective equipment (PPE) This may decrease voice recognition accuracy Inadvertent stacker and sorter operator errors may occur 07/03/2024 Other obesity due [...] software and direct typing Please excuse inadvertent stacker and sorter operator or typing errors, or uncorrected word substitutions Although every attempt has been made by the provider to proofread this document, occasional misspellings and typographical errors may still be present Due to the previous pandemic, and the use of personal protective equipment (PPE) This may decrease voice recognition accuracy Inadvertent stacker and sorter operator errors may occur 07/03/2024 PAF (paroxysmal atrial [...] software and direct typing Please excuse inadvertent stacker and sorter operator or typing errors, or uncorrected word substitutions Although every attempt has been made by the provider to proofread this document, occasional misspellings and typographical errors may still be present Due to the previous pandemic, and the use of personal protective equipment (PPE) This may decrease voice recognition accuracy Inadvertent stacker and sorter operator errors may occur 01/03/2025 Chronic anticoagulation (ICD-10 - Z79.01) Acute Concerns/Problem List: 01/04/2025 Lets update some comprehensive labs Will continue to see him biannually Chronic conditions are stable Rate controlled, no A. Fib today, , [...] software and direct typing Please excuse inadvertent stacker and sorter operator or typing errors, or uncorrected word substitutions Although every attempt has been made by the provider to proofread this document, occasional misspellings and typographical errors may still be present Due to the previous pandemic, and the use of personal protective equipment (PPE) This may decrease voice recognition accuracy Inadvertent stacker and sorter operator errors may occur 07/03/2024 Body mass index [...] software and direct typing Please excuse inadvertent stacker and sorter operator or typing errors, or uncorrected word substitutions Although every attempt has been made by the provider to proofread this document, occasional misspellings and typographical errors may still be present Due to the previous pandemic, and the use of personal protective equipment (PPE) This may decrease voice recognition accuracy Inadvertent stacker and sorter operator errors may occur 07/03/2024 Hyperlipidemia, unspecified (ICD-10 [...] software and direct typing Please excuse inadvertent stacker and sorter operator or typing errors, or uncorrected word substitutions Although every attempt has been made by the provider to proofread this document, occasional misspellings and typographical errors may still be present Due to the previous pandemic, and the use of personal protective equipment (PPE) This may decrease voice recognition accuracy Inadvertent stacker and sorter operator errors may occur 07/03/2024 Chronic anticoagulation (ICD-10 [...] software and direct typing Please excuse inadvertent stacker and sorter operator or typing errors, or uncorrected word substitutions Although every attempt has been made by the provider to proofread this document, occasional misspellings and typographical errors may still be present Due to the previous pandemic, and the use of personal protective equipment (PPE) This may decrease voice recognition accuracy Inadvertent stacker and sorter operator errors may occur Plan Of Treatment Pending Test Test Name Order Date X ray : Knees, bilateral, A-P standing 0 06/14/2017 DEXA 06/07/2024 Lipid Panel 07/19/2018 Comp. Metabolic Panel (14) 01/23/2019 Comp. Metabolic Panel (14) 07/19/2018 CBC 01/23/2019 CBC 07/19/2018 EKG 07/12/2017 25OH VITAMIN D 01/03/2025 25OH VITAMIN D 12/15/2022 25OH VITAMIN D 06/25/2021 CBC (COMPLETE BLOOD COUNT) 06/25/2021 CBC (COMPLETE BLOOD COUNT) 09/23/2020 CBC (COMPLETE BLOOD COUNT) 01/17/2018 CBC (COMPLETE BLOOD COUNT) WITH DIFF COMPREHENSIVE METABOLIC PANEL 06/25/2021 COMPREHENSIVE METABOLIC PANEL 12/15/2022 COMPREHENSIVE METABOLIC PANEL 09/23/2020 COMPREHENSIVE METABOLIC PANEL 01/17/2018 COMPREHENSIVE METABOLIC PANEL 01/03/2025 HEMOGLOBIN A1C 01/03/2025 HEMOGLOBIN A1C 09/23/2020 HEMOGLOBIN A1C 02/24/2021 HEMOGLOBIN A1C 10/28/2021 HEMOGLOBIN A1C 12/15/2022 HEMOGLOBIN A1C 06/25/2021 LIPID PANEL 12/15/2022 LIPID PANEL 06/25/2021 LIPID PANEL 09/23/2020 LIPID PANEL 01/03/2025 LIPID PANEL 01/17/2018 MICROALBUMIN, URINE 02/24/2021 PSA, SCREEN 06/25/2021 PSA, SCREEN 01/03/2025 TSH 01/03/2025 TSH 06/25/2021 TSH WITH REFLEX TO FT4 12/15/2022 URINALYSIS W/REFLEX CULTURE 12/15/2022 URINALYSIS W/REFLEX CULTURE 01/03/2025 CBC with Differential 01/03/2025 LIPID PANEL, STANDARD 12/23/2023 COMPREHENSIVE METABOLIC PANEL 12/23/2023 CBC (INCLUDES DIFF/PLT) 12/23/2023 URINALYSIS, COMPLETE 12/23/2023 HEMOGLOBIN A1c 12/23/2023 TSH 12/23/2023 VITAMIN D,25-OH,TOTAL,IA 12/23/2023 COMPLETE URINALYSIS 09/23/2020 COMPLETE URINALYSIS 06/25/2021 Future Test Test Name Order Date 25OH VITAMIN D 12/03/2022 CBC (COMPLETE BLOOD COUNT) WITH DIFF 07/2022 COMPREHENSIVE METABOLIC PANEL 12/03/2022 HEMOGLOBIN A1C 12/03/2022 LIPID PANEL 12/03/2022 URINALYSIS W/REFLEX CULTURE 12/03/2022 Next Appt Details Provider Name:DWAYNE RUVALCABA, 07/04/2025 10:30:00 AM, [address] [place] [address], [phone], Insurance Providers Payer Name Payer Address Payer Phone Subscriber Number Group Number Insured Name Patient Relationship to Insured Coverage Start Date Coverage End Date Medicare Part B J14 [address] [place] [id number] [phone] [id number] Rubin Frost Self - patient is the insured [facility] [address] [place] [address] [id number] Rubin Frost Self - patient is the insured 0 Medical (General) History Medical History History ICD Code hypertension hyperlipidemia Surgical History Surgery Date(Month/Year) colonoscopy 2015 ankle surgery
--- OUTSIDE RECORDS SUMMARY | 2025-01-18 06:11 | XMS_ITS | Clinical Summary ---
Author Organization [facility] [address] [facility] Address [address] [place] [address] Phone Care Team Providers Care Refrigeration Brazer/Solderer Name Role Phone Herminia Velásquez MD Primary Care Provider [phone] Allergies No known active allergies Medications calcium carbonate 1,500 mg (600 mg elemental calcium) tablet Take 1 tablet (1,500 mg total) by mouth 1 (one) time each day. Active Vitamin-B complex split tablet Take by mouth 1 (one) time each day. Active chlorthalidone (HYGROTON) 25 mg tablet Take 1 tablet (25 mg total) by mouth 1 (one) time each day. 02/11/2024 Active amLODIPine-joy zepril (LOTREL) 10-40 mg per capsule Take 1 capsule by mouth 1 (one) time each day. Active cyanocobalamin (VITAMIN B-12) 1,000 mcg tablet Take 1 tablet (1,000 mcg total) by mouth. Active metoprolol succinate (TOPROL-XL) 50 mg 24 hr tablet Take 1 tablet (50 mg total) by mouth 1 (one) time each day. 12/30/2023 Active metoprolol succinate (TOPROL-XL) 50 mg 24 hr tablet TAKE 1 TABLET BY MOUTH EVERY DAY 90 tablet 2 11/01/2024 Active Xarelto 20 mg tablet Take 1 tablet (20 mg total) by mouth 1 (one) time each day. 90 tablet 1 11/27/2024 Active Encounters Date Type Department Care Team Description 11/13/2024 Telephone [facility] [address] [place] [address] Young Dash MD from Last 3 Months Surgical History Surgery Date Site/Laterality Comments COLON SURGERY ANKLE SURGERY Medical History Medical History Date Comments Hyperlipidemia Hypertension Paroxysmal A-fib ([facility] V24, [facility] V28) Social History Tobacco Use Types Packs/Day Years Used Date Smoking Tobacco: Former Smokeless Tobacco: Former Alcohol Use Standard Drinks/Week Comments Yes 4 (1 standard drink = 0.6 oz pur e alcohol) Interpersonal Safety Answer Date Record ed Physical Abuse 08/09/2024 Verbal Abuse 08/09/2024 Sex and Gender Information Value Date Recorded Sex Assigned at Male 08/08/2024 10:20 AM EDT Legal Sex Male 11:57 AM EST Gender Identity Male 08/08/2024 10:20 AM EDT Sexual Orientation Straight 08/08/2024 10 :38 AM EDT Obstetrics History Last Filed Vital Signs Vital Sign Reading Time Taken Comments Blood Pressure 113/74 08/09/2024 8:06 AM EDT Pulse 75 08/09/2024 8:06 AM EDT Temperature 35.8 C (96.4 F) 08/09/2024 7:46 AM EDT Respiratory Rate 15 08/09/2024 8:06 AM EDT Oxygen Saturation 97% 08/09/2024 8:06 AM EDT Inhaled Oxygen Concentration - - Weight 99.8 kg (220 lb) 08/09/2024 7:23 AM EDT Height 180.3 cm (5' 11 ) 08/09/2024 7:23 AM EDT Body Mass Index 30.68 08/09/2024 7:23 AM EDT Plan of Treatment Upcoming Encounters Date Type Department Care Team (Late st Contact Info) Description 03/19/2025 7:40 AM EST Office Visit [facility] [address] [facility] [address] [place] [address] Greta Luna NP [address] [place] [address] [place] [phone] Health Maintenance Due Date Last Done Comments Abdominal Aortic Aneurysm (AAA) Screen 03/31/2022 Cholesterol Screening (Lipid Panel) 03/31/2022 Hepatitis C Screening 03/31/2022 Medicare Annual Wellness Visit 03/31/2022 Social Influencers of Health Screening 03/31/2022 Depression Screening 05/03/2024 Hypertension/CHF/CAD Annual BMP Blood Test 09/15/2024 09/16/2023 Falls Risk Assessment 08/09/2025 08/09/2024 DTaP,Tdap,and Td Vaccines (2 - Td or Tdap) 08/07/2034 08/07/2024 Colorectal Cancer Screening: Colonoscopy 08/09/2034 08/09/2024 Zoster Vaccines Completed 04/11/2018, 02/04/2018 Pneumococcal Vaccine: 50+ Years Completed 12/24/2022, 07/10/2021, 01/31/2018 RSV Immunization Adult Patients Completed 04/13/2023 COVID-19 Vaccine Completed 08/07/2024, , 01/29/2023, Additional history exists Influenza Vaccine Completed 12/28/2024, , 12/24/2022, Additional history exists HIB Vaccines Aged Out No longer eligi [...] age to complete this topic Meningococcal B Vaccine Aged Out No l onger eligible based on patient's age to complete this topic RSV Immunization Patients Under 20 months Aged Out No longer eligible based on patient's age to complete this topic Varicella Vaccines Aged Out No longer eligible based on patient's age to complete this topic Procedures Procedure Name Priority Date/Time Associated Diagnosis Comments COLONOSCOPY Routine 08/09/2024 7:45 AM EDT Personal history of other colon polyps from Last 3 Months or Most Recently Relevant to Health Maintenance Results * COLONOSCOPY Anesthesia - MAC; [facility] ENDOSCOPY (08/09/2024 7:45 AM EDT) Anatomical Region Laterality Modality Other 08/09/2024 7:23 AM EDT Impressions 08/09/2024 7:46 AM EDT - One 3 mm polyp in the cecum, removed with a jumbo cold forceps. Resected and retrieved. - Diverticulosis in the sigmoid colon. - Non-bleeding internal hemorrhoids. - The examination was otherwise normal on direct and retroflexion views. Recommendation: - Discharge patient to home. - High fiber diet. - Continue present medications. - Resume Xarelto (rivaroxaban) at prior dose today. - Await pathology results. - Repeat colonoscopy for surveillance based on pathology results. - Return to GI clinic PRN. Narrative 08/09/2024 7:46 AM EDT [facility] GI Patient Name: Rubin Frost Procedure Date: 08/09/2024 7:23 AM Date of : 1950 Age: 73 Room: ROOM 14 Gender: Male Note Status: Finalized Attending MD: Julio Abdullahi MD, Procedure Date No Time: 08/09/2024 Procedure: Colonoscopy Indications: Screening for colorectal malignant neoplasm Providers: Julio Abdullahi MD Referring MD: Julio Abdullahi MD Medicines: Monitored Anesthesia Care Complications: No immediate complications. Estimated Blood Loss: Estimated blood loss: none. Procedure: Pre-Anesthesia Assessment: - ASA Grade Assessment: II - A patient with mild systemic disease. - After reviewing the risks and benefits, the patient was deemed in satisfactory condition to undergo the procedure. After I obtained informed consent, the scope was passed under direct vision. Throughout the procedure, the patient's blood pressure, pulse, and oxygen saturations were monitored continuously.The Colonoscope was introduced through the anus and advanced to the cecum, identified by appendiceal orifice and ileocecal valve. The colonoscopy was performed without difficulty. The patient tolerated the procedure well. The quality of the bowel preparation was good. Findings: A 3 mm polyp was found in the cecum. The polyp was sessile. The polyp was removed with a jumbo cold forceps. Resection and retrieval were complete. Estimated blood loss was minimal. Multiple small and large-mouthed diverticula were found in the sigmoid colon. Non-bleeding internal hemorrhoids were found during retroflexion. The hemorrhoids were small. The exam was otherwise without abnormality on direct and retroflexion views. Procedure Code(s): --- Professional --- 45412, Colonoscopy, flexible; with biopsy, single or multiple Diagnosis Code(s): --- Professional --- Z12.11, Encounter for screening for malignant neoplasm of colon D12.0, Benign neoplasm of cecum CPT copyright 2020 [employer]. All rights reserved. The codes documented in this report are preliminary and upon conditioning coach review may be revised to meet current compliance requirements. Julio Abdullahi MD 08/09/2024 7:46:05 AM This report has been signed electronically.Julio Abdullahi MD Number of Addenda: 0 Note Initiated On: 08/09/2024 7:23 AM Scope In: Scope Out: Endoscopy Department at [facility] - [address] [place] [id number] Procedure Note Julio Abdullahi MD - 08/09/2024 [facility] GI Patient Name: Rubin Frost Procedure Date: 08/09/2024 7:23 AM Date of : 1950 Age: 73 Room: ROOM 14 Gender: Male Note Status: Finalized Attending MD: Julio Abdullahi MD, Procedure Date No Time: 08/09/2024 Procedure: Colonoscopy Indications: Screening for colorectal malignant neoplasm Providers: Julio Abdullahi MD Referring MD: Julio Abdullahi MD Medicines: Monitored Anesthesia Care Complications: No immediate complications. Estimated Blood Loss: Estimated blood loss: none. Procedure: Pre-Anesthesia Assessment: - ASA Grade Assessment: II - A patient with mild systemic disease. - After reviewing the risks and benefits, thepatient was deemed in satisfactory condition to undergo the procedure. After I obtained informed consent, the scope was passed under direct vision. Throughout theprocedure, the patient's blood pressure, pulse, and oxygen saturations were monitored continuously.The Colonoscope was introduced through the anus and advanced to the cecum, identified by appendiceal orifice and ileocecal valve. The colonoscopy was performed without difficulty. The patient tolerated the procedure well. The quality of the bowel preparation was good. Findings: A 3 mm polyp was found in the cecum. The polyp was sessile. The polyp was removed with a jumbo cold forceps. Resection and retrieval were complete. Estimated blood loss was minimal. Multiple small and large-mouthed diverticula were found in the sigmoid colon. Non-bleeding internal hemorrhoids were found during retroflexion. The hemorrhoids were small. The exam was otherwise without abnormality ondirect and retroflexion views. Procedure Code(s): --- Professional --- 21906, Colonoscopy, flexible; with biopsy, singleor multiple Diagnosis Code(s): --- Professional --- Z12.11, Encounter for screening for malignantneoplasm of colon D12.0, Benign neoplasm of cecum CPT copyright 2020 [employer]. All rights reserved. The codes documented in this report are preliminary and upon conditioning coach reviewmay be revised to meet current compliance requirements. Julio Abdullahi MD 08/09/2024 7:46:05 AM This report has been signed electronically.Julio Abdullahi MD Number of Addenda: 0 Note Initiated On: 08/09/2024 7:23 AM Scope In: Scope Out: Endoscopy Department at [facility] - [address] [place] [phone] IMPRESSION: - One 3 mm polyp in the cecum, removed with a jumbo cold forceps. Resected and retrieved. - Diverticulosis in the sigmoid colon. - Non-bleeding internal hemorrhoids. - The examination was otherwise normal on directand retroflexion views. Recommendation: - Discharge patient to home. - High fiber diet. - Continue present medications. - Resume Xarelto (rivaroxaban) at prior dosetoday. - Await pathology results. - Repeat colonoscopy for surveillance based on pathology results. - Return to GI clinic PRN. Julio Abdullahi MD GI~PROCEDURE ORDERABLES Final Result from Last 3 Months or Most Recently Relevant to Health Maintenance Insurance [place] [employer] [id number] MEDICARE [facility] Care Teams Refrigeration Brazer/Solderer Relationship Specialty Start Date End Date Herminia Velásquez MD [address] [place] [address] [place] [id number] PCP - General Internal Medicine 06/13/24
--- OUTSIDE RECORDS SUMMARY | 2025-01-18 06:11 | XMS_ITS ---
Author Name [facility] Organization Unknown Encounters Encounter Type Encounter Reason Primary Diagnosis Location Date Ambulatory [facility] 02/29/2024 Care Team Organization Name Specialty Phone Email Start Date End Da te [facility] Rashmi Pierce Primary Care 10/13/2024 [facility] 2024 [facility] Herminia Velásquez Primary Care 11/18/2023 [facility] Herminia Velásquez Primary Care 09/07/2022
[2025-01-18 08:40] LABS: MANUAL DIFF FLAG NO
[2025-01-18 08:46] LABS: Hematocrit 41.3 % (42.0-52.0); Hemoglobin 14.8 g/dl (14.0-18.0); Imm Gran Abs Auto 0.02 X10*3/uL (0.00-0.03); Imm Gran Pct Auto 0.3 % (0.0-0.4); Lymphocytes Absolute Auto 2.3 X10*3/uL (1.2-4.9); Mean Corpuscular HGB Conc 35.8 g/dl (31.0-36.0); Mean Corpuscular Hemoglobin 34.6 pg (27.0-33.0); Mean Corpuscular Volume 96.5 fL (80.0-98.0); NRBC Abs Auto 0.000 X10*3/uL (0.0-0.012); NRBC Pct Auto 0.0 /100WBC (0.0-0.2); Platelet Count 234 X10*3/uL (160-400); Red Blood Count 4.28 X10*6/uL (4.60-5.80); White Blood Count 5.7 X10*3/uL (4.8-10.8)
[2025-01-18 09:16] LABS: Alanine Aminotransferase 22 U/L (0-40); Albumin Level 4.2 g/dL (3.5-5.0); Alkaline Phosphatase 53 U/L (39-117); Anion Gap 10 (12-20); Aspartate Amino Transferase 24 U/L (5-37); Blood Urea Nitrogen 16 mg/dL (9-16); Calcium 9.3 mg/dL (8.4-10.2); Carbon Dioxide 28 mmol/L (22-29); Chloride 105 mmol/L (96-108); Cholesterol 149 mg/dL (<200); Estimated Glomerular Filt Rate > 60; HDL Cholesterol 42 mg/dL (>40); Potassium 4.1 mmol/L (3.3-5.1); Prostate Specific Antigen 1.42 ng/mL (<0.05-4.0); Sodium 139 mmol/L (135-145); Total Protein 6.9 g/dL (6.5-8.0); Triglycerides 58 mg/dL (<150)
[2025-01-18 09:17] LABS: Thyroid Stimulating Hormone 1.40 uIU/mL (0.32-4.0)
[2025-01-18 09:30] LABS: Hemoglobin A1C 144.1677 umol/L; Total Hemoglobin (HGBA1C) 3819.9581 umol/L
[2025-01-18 11:38] LABS: Appearance Urine Clear; Glucose Urine UA Negative (Negative); PH 7.0 (5.0-9.0); Specific Gravity - Urine 1.010 (1.005-1.025)
== END 2025-01-18 06:09 | disposition home or self-care (01) ==
LOC: HO.HMGCLDS 06:08
PROVIDERS: PCP Nurse Practitioner Acute Care; Visit Provider Nurse Practitioner Acute Care
DX: Z00.00 Encounter for general adult medical examination without abnormal findings (principal); Z13.1 Encounter for screening for diabetes mellitus; Z13.29 Encounter for screening for other suspected endocrine disorder; Z12.5 Encounter for screening for malignant neoplasm of prostate; E78.5 Hyperlipidemia, unspecified; E55.9 Vitamin D deficiency, unspecified
CPT/HCPCS: 36415; 80053; 80061; 81003; 82306; 83036; 84153; 84443; 85025